=== PATIENT | male | born 1945 | race Hispanic/Latino ===

== ENCOUNTER 2019-06-13 06:35 | Emergency (ER) | payer MEDICARE ==
--- NOTE | 2019-06-13 07:16 | Emergency Department Report ---
HPI - General Time Seen by Provider: 06/13/19 07:04 - HPI HPI: 74-year-old male presents to the emergency department via EMS from home after having a fall this morning around 6 AM. The patient says that he just lost his balance. He did hit his head and face but denies loss of consciousness. He has some bleeding to the left side of the forehead. He says he normally walks without any type of walker or assistance. He denies any past medical history but previous records show a history of COPD and BPH. He says that he is up-to-date with his tetanus vaccination. No primary care physician. No complaints of any chest pain, back pain, extremity pain. ED Past Medical Hx - Past Medical History Previous Medical History?: Yes Hx Kidney Stones: Yes Hx COPD: Yes - Surgical History Past Surgical History?: No - Social History Smoking Status: Current Every Day Smoker Substance Use Type: None - Medications Home Medications: Home Medications Medication Instructions Recorded Confirmed Last Taken Type Tamsulosin [Flomax] 0.4 mg PO QDAY 11/25/15 11/25/15 Unknown History ED Review of Systems ROS: Stated complaint: FALL Other details as noted in HPI Comment: All other systems reviewed and negative Constitutional: denies: chills, fever Eyes: other (left fabian-orbital swelling). denies: eye pain, vision change ENT: denies: ear pain, throat pain Respiratory: denies: cough, shortness of breath Cardiovascular: denies: chest pain, syncope Gastrointestinal: denies: abdominal pain, vomiting Genitourinary: denies: dysuria, discharge Musculoskeletal: denies: back pain, arthralgia Skin: denies: rash, pruritus Neurological: denies: headache, weakness, numbness, confusion Physical Exam - Physical Exam Vital Signs: Vital Signs 06/13/19 06/13/19 06:50 07:00 Temperature 97.9 F Pulse Rate 87 Respiratory 17 17 Rate Blood Pressure 172/81 O2 Sat by Pulse 93 93 Oximetry Physical Exam: GENERAL: The patient is well-developed well-nourished. HENT: Normocephalic. Atraumatic. Patient has moist mucous membranes. EYES: Extraocular motions are intact. Pupils equal reactive to light bilaterally. NECK: Supple. Trachea is midline. CHEST/LUNGS: Clear to auscultation. There is no respiratory distress noted. HEART/CARDIOVASCULAR: Regular. There is no tachycardia. There is no murmur. ABDOMEN: Abdomen is soft, nontender. Patient has normal bowel sounds. There is no abdominal distention. SKIN: Skin is warm and dry. There is moderate to severe left periorbital ecchymosis and swelling. There is an abrasion to the left side of the forehead. NEURO: The patient is awake, alert and cooperative. Cranial nerves II through XII grossly intact. Normal speech. MUSCULOSKELETAL: There is no tenderness or deformity. There is no evidence of acute injury. ED Course Vital Signs 06/13/19 06/13/19 06:50 07:00 Temperature 97.9 F Pulse Rate 87 Respiratory 17 17 Rate Blood Pressure 172/81 O2 Sat by Pulse 93 93 Oximetry - Consultations Consultation #1: I contacted [facility] to discuss the patient's multiple facial fractures to inquire about the need for transfer or any emergent intervention. The transfer line called back saying to send the patient over to the emergency department and the patient was accepted by the trauma attending, Dr. Catherine Reid. 06/13/19 08:54 ED Medical Decision Making - Lab Data Result diagrams: 06/13/19 07:10 06/13/19 07:10 - Radiology Data Radiology results: report reviewed, image reviewed interpreted by me: Chest x-ray does not show any acute process. There are no pleural effusions, obvious pneumonia and there is no pneumothorax. X-ray of the pelvis does not show any fracture, dislocation or any acute process. CT head/brain wo con INDICATION / CLINICAL INFORMATION: fall, head injury. PANCHO HNIQUE: All CT scans at this location are performed using CT dose reduction for ALARA by means of automated exposure control. COMPARISON: None available. FINDINGS: No acute intracranial hemorrhage. No abnormal extra-axial fluid collection. There is diffuse cortical involution. 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 No evidence of mass effect. There is prominent left periorbital soft tissue swelling and gross right orbital sinus complex fracture. Nasal fracture is apparent. No calvarial fracture. IMPRESSION: 1. No acute intracranial abnormality. 2. Left-sided facial and nasal fractures. 3. Chronic ischemic changes of lacunar infarctions and cerebellar infarctions. CT facial bones wo con INDICATION / CLINICAL INFORMATION: fall, facial trauma, left fabian-orbital swelling. TECHNIQUE: All CT scans at this location are performed using CT dose reduction for ALARA by means of automated exposure control. COMPARISON: None available. FINDINGS: Prominent left periorbital soft tissues edema with associated acute fractures of the anterior lateral matta of the left maxillary sinus and lateral and inferior left orbital fractures. Comminuted fracture through the left zygoma. Nasal fractures noted. There is an ununited right mandibular condyle fracture that appears well corticated presumably represents old injury. IMPRESSION: 1. Complex acute left maxillofacial fracture involving the zygoma, lateral and inferior matta of the left orbit, left maxillary sinus and nasal bones. 2. Apparent old injury of the right mandibular condyle. CT cervical spine wo con INDICATION: fall, trauma. TECHNIQUE: All CT scans at this location are performed using the following dose modulation technique: Automated exposure control. COMPARISON: None available. FINDINGS: No acute fracture or subluxation is seen in the cervical spine. There is advanced mid to lower cervical discogenic degenerative change. No prevertebral soft tissue swelling. No acute findings are seen in the included lung apices. Paraspinous musculature is unremarkable. IMPRESSION: 1. No acute fracture or subluxation is seen within the cervical spine. - Medical Decision Making This patient presents to the emergency department after having a fall about one hour prior to arrival. He has left periorbital ecchymosis and edema. CT of the head did not show any bleed, shift, mass, ischemia, or any other acute process. CT of the cervical spine did not show any fracture, subluxation, or any other acute process. CT of the facial bones without contrast shows multiple facial and nasal bone fractures including a comminuted and complex fracture of the zygoma. There is also 2 fractures of the left orbit and the maxillary sinus. I contacted [facility], a trauma center, to discuss the patient's injuries and the patient was accepted for transfer to the trauma service to the emergency department. Patient's labs showed some hypokalemia and the patient was given both IV and oral potassium chloride. The patient was updated regarding the injuries/findings and the plan for transfer to [place] and he understands and agrees to the plan. - Differential Diagnosis subarachnoid, skull fracture, facial fractures, contusion Critical Care Time: No Critical care attestation.: If time is entered above; I have spent that time in minutes in the direct care of this critically ill patient, excluding procedure time. ED Disposition Clinical Impression: Hypokalemia Zygomatic fracture Qualifiers: Encounter type: initial encounter Fracture type: closed Laterality: left Qualified Code(s): S02.40FA - Zygomatic fracture, left side, initial encounter for closed fracture Maxillary sinus fracture Qualifiers: Encounter type: initial encounter Fracture type: closed Qualified Code(s): S02.401A - Maxillary fracture, unspecified side, initial encounter for closed fracture Orbit fracture, left Qualifiers: Encounter type: initial encounter Fracture type: closed Qualified Code(s): S02.85XA - Fracture of orbit, unspecified, initial encounter for closed fracture Nasal bone fracture Qualifiers: Encounter type: initial encounter Fracture type: closed Qualified Code(s): S02.2XXA - Fracture of nasal bones, initial encounter for closed fracture Disposition: DC/[facility]-[id number] ANOTHER TYPE HLTHCARE Is pt being admited?: No Condition: Fair Referrals: NEMESIO HAWKINS MD [Primary Care Provider] - 3-5 Days Time of Disposition: 14:09
[2019-06-13 08:03] LABS: Alanine Aminotransferase 12 units/L (7-56); Albumin 4.2 g/dL (3.9-5); BUN/Creatinine Ratio 20; Blood Urea Nitrogen 32 mg/dL (9-20); Calcium 10.6 mg/dL (8.4-10.2); Hemolysis Index 0
--- NOTE | 2019-06-13 08:03 | Cat Scan Report ---
CT head/brain wo con INDICATION / CLINICAL INFORMATION: fall, head injury. TECHNIQUE: All CT scans at this location are performed using CT dose reduction for ALARA by means of automated e xposure control. COMPARISON: None available. FINDINGS: No acute intracranial hemorrhage. No abnormal extra-axial fluid collection. There is diffuse cortical involution. 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 No evidence of mass effect. There is prominent left periorbital soft tissue swelling and gross right orbital sinus complex fractu re. Nasal fracture is apparent. No calvarial fracture. IMPRESSION: 1. No acute intracranial abnormality. 2. Left-sided facial and nasal fractures. 3. Chronic ischemic changes of lacunar infarctions and cerebellar infarctions. Signer Name: Parish Wang MD Signed: 06/13/2019 7:58 AM Workstation Name: [id number]
--- NOTE | 2019-06-13 08:09 | Cat Scan Report ---
CT facial bones wo con INDICATION / CLINICAL INFORMATION: fall, facial trauma, left fabian-orbital swelling. TECHNIQUE: All CT scans at this location are performed using CT dose reduction for ALARA by means of automated e xposure control. COMPARISON: None available. FINDINGS: Prominent left periorbital soft tissues edema with associated acute fractures of the anterior lateral matta of the left maxillary sinus and lateral and inferior left orbital fractures. Comminuted fracture through the left zygoma. Nasal fractures noted. There is an ununited right mandibular condyle fracture that appears well corticated presumably repres ents old injury. IMPRESSION: 1. Complex acute left maxillofacial fracture involving the zygoma, lateral and inferior matta of the left orbit, left maxillary sinus and nasal bones. 2. Apparent old injury of the right mandibular condyle. Signer Name: Parish Wang MD Signed: 06/13/2019 8:05 AM Workstation Name: [id number]
[2019-06-13 08:10] LABS: Basophils # (Auto) 0.1 K/mm3 (0.0-0.1); Basophils % (Auto) 0.5 % (0.0-1.8); Eosinophils # (Auto) 0.2 K/mm3 (0.0-0.4); Eosinophils % (Auto) 1.7 % (0.0-4.3); Hematocrit 36.7 % (35.5-45.6); Hemoglobin 12.2 gm/dl (11.8-15.2); Lymphocytes # (Auto) 1.8 K/mm3 (1.2-5.4); Lymphocytes % (Auto) 18.6 % (13.4-35.0); Mean Corpuscular HGB Conc 33 % (32-34); Mean Corpuscular Volume 81 fl (84-94); Monocytes # (Auto) 0.7 K/mm3 (0.0-0.8); Monocytes % (Auto) 6.8 % (0.0-7.3); Platelet Count 267 K/mm3 (140-440); Red Blood Count 4.54 M/mm3 (3.65-5.03)
--- NOTE | 2019-06-13 08:11 | Cat Scan Report ---
CT cervical spine wo con INDICATION: fall, trauma. TECHNIQUE: All CT scans at this location are performed using the following dose modulation technique: Automated exposure control. COMPARISON: None available. FINDINGS: No acute fracture or subluxation is seen in the cervical spine. There is advanced mid to lower cervic al discogenic degenerative change. No prevertebral soft tissue swelling. No acute findings are seen i n the included lung apices. Paraspinous musculature is unremarkable. IMPRESSION: 1. No acute fracture or subluxation is seen within the cervical spine. CT face/head reported separately. Signer Name: Carlos Alberto Tenorio MD Signed: 06/13/2019 8:07 AM Workstation Name: [id number]
--- NOTE | 2019-06-13 08:12 | XRay Report ---
CHEST PA AND LATERAL VIEWS INDICATION: fall. COMPARISON: None. FINDINGS: Support devices: None. Heart: Within normal limits. Lungs/Pleura: No acute pulmonary or pleural findings. No acute fracture is seen. IMPRESSION: 1. No acute traumatic findings. Signer Name: Carlos Alberto Tenorio MD Signed: 06/13/2019 8:08 AM Workstation Name: [id number]
[2019-06-13 08:13] LABS: Red Cell Distribution Width 22.2 % (13.2-15.2)
--- NOTE | 2019-06-13 08:13 | XRay Report ---
AP PELVIS INDICATION: fall. COMPARISON: No relevant prior imaging study available. FINDINGS: No acute, displaced fracture or dislocation is seen. The sacrum is largely obscured by overlying radha l gas. There is lower lumbar spondylosis and osteoarthrosis at the hips. IMPRESSION: 1. No acute findings. Signer Name: Carlos Alberto Tenorio MD Signed: 06/13/2019 8:09 AM Workstation Name: [email or web address]
[2019-06-13] MEDS ORDERED: POTASSIUM CHLORIDE ER 20 MEQ TAB PO ONE (08:18)
[2019-06-13] MEDS ORDERED: SODIUM CHLORIDE 0.9% 500 ML 500 ML IV ONE (08:19)
[2019-06-13] MEDS ORDERED: POTASSIUM CHLORIDE 10 MEQ 10 MEQ/100 ML BAG IV SCH (09:00)
[2019-06-13 09:54] VITALS: BP 153/80
== END 2019-06-13 09:53 | disposition other institution (70) ==
LOC: ED 06:35
DX: S02.2XXA Fracture of nasal bones, initial encounter for closed fracture (principal); S02.85XA Fracture of orbit, unspecified, initial encounter for closed fracture; S02.401A Maxillary fracture, unspecified side, initial encounter for closed fracture; S02.40FA Zygomatic fracture, left side, initial encounter for closed fracture; E87.6 Hypokalemia; J44.9 Chronic obstructive pulmonary disease, unspecified; F17.200 Nicotine dependence, unspecified, uncomplicated; W19.XXXA Unspecified fall, initial encounter; Y93.89 Activity, other specified; Y92.89 Other specified places as the place of occurrence of the external cause; Y99.8 Other external cause status
CPT/HCPCS: 36415; 70450; 70486; 71046; 72125; 72170; 80053; 82550; 84484; 85025; 86850; 86900; 86901; 96365; 96375; 99285; J3480; J7040; 80320; G0480